=== PATIENT | male | born 1955 | race Caucasian/White ===

== ENCOUNTER → 2020-04-20 | Outpatient (CLI) | payer MEDICARE, MEDICAID ==
--- NOTE | 2020-04-20 15:44 | KCIC ---
MR of the left shoulder HISTORY: Left shoulder pain after an injury. Injury one month ago. TECHNIQUE: Routine multiplanar sequences are obtained. FINDINGS: Moderate motion degradation. Acromioclavicular joint is degenerative, with inferior osteophytes and mass effect upon the rotator cuff outlet. Full-thickness rupture of the supraspinatus and infraspinatus tendon with about 4 cm retraction, to the superior labrum. Mild/moderate muscle atrophy. Subscapularis tendinosis with partial tear. Boac-ol-wwbuliey fluid in the glenohumeral joint and subdeltoid bursa. Glenohumeral joint DJD with chondromalacia. Degenerative tearing of the superior, posterior and inferior labrum. Biceps tendinosis. No acute fracture. No aggressive bone destruction. Mild edema signal within the infraspinatus, and to lesser extent supraspinatus, suggesting component of acute strain. IMPRESSION: 1. Large rotator cuff tear. Complete rupture with retraction of the supraspinatus and infraspinatus tendons, partial subscapularis tendon tear. 2. Apparent degenerative tearing of the superior, posterior and inferior labrum. 3. Biceps tendinosis. 4. [id number] joint and bursal fluid. 5. Moderate motion degradation. Electronically signed by: Adrián Pitts MD (04/20/2020 3:41 PM) [id number]
== END | disposition home or self-care (01) ==
LOC: KCIC MRI 13:42
PROVIDERS: ATTEND Physician Assistant
DX: S43.422A Sprain of left rotator cuff capsule, initial encounter (principal); X58.XXXA Exposure to other specified factors, initial encounter; Y93.89 Activity, other specified; Y92.89 Other specified places as the place of occurrence of the external cause; Y99.8 Other external cause status; M75.22 Bicipital tendinitis, left shoulder; M94.212 Chondromalacia, left shoulder; M19.012 Primary osteoarthritis, left shoulder
CPT/HCPCS: 73221